=== PATIENT | female | born 1955 | race African-American/Black ===

== ENCOUNTER 2022-02-16 05:26 | Inpatient (IN) ==
[2022-02-16] MEDS ORDERED: ONDANSETRON 4 MG/2 ML VIAL IV STA (05:34)
[2022-02-16] MEDS ORDERED: LACTATED RINGERS 1,000 ML IV ONE (05:34)
[2022-02-16] MEDS ORDERED: PANTOPRAZOLE 40 MG VIAL IV STA (05:34)
[2022-02-16] MEDS ORDERED: OCTREOTIDE 100 MCG/ML SYRINGE IV STA (05:34)
[2022-02-16 05:48] LABS: Basophils # 0.1 10*3/uL (0.0-0.2); Basophils % 0.3 % (0.0-0.8); Eosinophils # 0.1 10*3/uL (0.0-0.87); Eosinophils % 0.2 % (0.00-10.9); Immature Granulocytes % 5.4 %; Immature Granulocytes Absolute 1.17 #; Lymphocytes # 1.4 10*3/uL (1.4-4.0); Lymphocytes % 6.2 % (21.3-54.2); Mean Corpuscular HGB Conc 34.5 GM/DL (32-36); Mean Corpuscular Volume 82.7 FL (87-102); Mean Platelet Volume 9.2 FL (9.6-12.0); Monocytes # 2.3 10*3/uL (0.11-0.8); Monocytes % 10.4 % (1.7-12.7); NRBC # 1.05 10*3/uL; Neutrophils % 77.5 % (38.7-73.9); Platelet Count 812 T/CUMM (130-400); Red Blood Count 1.68 MC/CUMM (3.8-5.5); Red Cell Distribution Width 15.5 % (9.3-17.3); White Blood Count 21.7 T/CUMM (4-12)
[2022-02-16 05:52] LABS: Hematocrit 13.9 VOL% (35.7-47.0); Hemoglobin 4.8 GM/DL (12.0-16.0)
[2022-02-16 06:02] LABS: INR 1.4; Partial Thromboplastin Time 33.4 SECS (23.8-32.1)
[2022-02-16 06:12] LABS: Band Neutrophils 5 % (0-10); Lymphocytes 6 % (20-55); Myelocytes 2 %; Nucleated Red Blood Cells 5 (0-5); Total Cells Counted 100
[2022-02-16 06:13] LABS: Anisocytosis 1+; Hypochromia 1+; Microcytosis 1+; Polychromasia Slight
[2022-02-16 06:20] LABS: Albumin 1.8 G/DL (3.4-5.0); Bilirubin,Total 0.6 MG/DL (0.20-1.00); Calcium 7.5 MG/DL (8.5-10.1); Osmolality,Calculated 285.2 MOS/KG (273-304); Total Protein 5.6 G/DL (6.4-8.2)
[2022-02-16] MEDS ORDERED: CALCIUM GLUCONATE RIDER 2,000 MG/100 ML PREMIX IV ONE ×2 (06:29→06:30)
[2022-02-16] MEDS ORDERED: ONDANSETRON 4 MG/2 ML VIAL IV ONE ×2 (06:30→08:22)
[2022-02-16] MEDS ORDERED: SODIUM CHLORIDE 0.9% 1,000 ML IV PRN ×3 (07:40→10:11)
[2022-02-16] MEDS ORDERED: PANTOPRAZOLE INJ 200 MG in SODIUM CHLORIDE 0.9% 250 ML IV SCH (08:00)
[2022-02-16] MEDS ORDERED: ONDANSETRON 4 MG/2 ML VIAL IV PRN (08:04)
[2022-02-16] MEDS ORDERED: ALBUTEROL 2.5 MG/3 ML NEB RESP TX PRN (08:04)
[2022-02-16] MEDS ORDERED: PROMETHAZINE 25 MG/1 ML VIAL IM PRN (08:04)
[2022-02-16] MEDS ORDERED: MORPHINE 2 MG/1 ML SYRINGE IV PRN (08:04)
[2022-02-16] MEDS ORDERED: LACTATED RINGERS 1,000 ML IV SCH (08:30)
[2022-02-16 09:39] LABS: Basophils # 0.1 10*3/uL (0.0-0.2); Basophils % 0.4 % (0.0-0.8); Eosinophils % 0.1 % (0.00-10.9); Hematocrit 19.6 VOL% (35.7-47.0); Immature Granulocytes % 4.4 %; Immature Granulocytes Absolute 0.79 #; Lymphocytes # 0.9 10*3/uL (1.4-4.0); Mean Corpuscular HGB Conc 33.7 GM/DL (32-36); Mean Corpuscular Volume 86.3 FL (87-102); Mean Platelet Volume 9.3 FL (9.6-12.0); Monocytes # 2.5 10*3/uL (0.11-0.8); Monocytes % 13.9 % (1.7-12.7); NRBC # 0.88 10*3/uL; Neutrophils % 76.2 % (38.7-73.9); Red Cell Distribution Width 16.3 % (9.3-17.3); White Blood Count 18.1 T/CUMM (4-12)
[2022-02-16 09:40] LABS: Hemoglobin 6.6 GM/DL (12.0-16.0); Red Blood Count 2.27 MC/CUMM (3.8-5.5)
[2022-02-16 09:41] LABS: Platelet Count 574 T/CUMM (130-400)
[2022-02-16 09:55] LABS: Band Neutrophils 3 % (0-10); Eosinophils 2 % (0-10); Lymphocytes 5 % (20-55); Nucleated Red Blood Cells 4 (0-5); Platelet Estimate Increased; Total Cells Counted 100
[2022-02-16 11:41] VITALS: BP 111/75
== END 2022-02-16 11:05 | disposition hospice, home (50) | DRG 813 ==
LOC: N.ED 05:26 → N.EDINP 08:04
PROVIDERS: ADMIT Internal Medicine; ATTEND Internal Medicine